=== PATIENT | male | born 1970 | race Caucasian/White ===

== ENCOUNTER → 2020-07-22 | Outpatient (CLI) | payer MEDICARE, OTHER ==
[~2020-07-22] MED LIST: MEDICATION
--- NOTE | 2020-07-22 12:01 | RAD ---
EXAM: Abdomen, 2 views. HISTORY: Pain. COMPARISON: CT dated 02/20/2016. FINDINGS: Frontal upright and supine views of the abdomen are obtained. There is a nonobstructive bowel gas pattern. There is no free air. There is linear radiodensity overlying the right upper quadrant measuring 2.5 mm. This is seen on both images and corresponds with extraluminal linear density adjacent to the proximal duodenum on the prior CT. IMPRESSION: No acute pulmonary finding. Electronically signed by: Chrissie Olmos MD (07/22/2020 11:57 AM) [id number]
== END ==
LOC: PMG 11:24
PROVIDERS: ATTEND Physician Assistant
DX: R10.31 Right lower quadrant pain (principal)
CPT/HCPCS: 74019

== ENCOUNTER → 2020-07-31 | Outpatient (CLI) | payer MEDICARE, OTHER ==
[~2020-07-31] MED LIST changes: +IOHEXOL 240 MG/ML 50ML VIAL. ONE; +IOHEXOL 240 MG/ML 50ML VIAL. PO ONE; +IOHEXOL 300 MG/ML 75 ML VIAL. IV ONE
--- NOTE | 2020-07-31 14:34 | RAD ---
EXAM: CT Abdomen and Pelvis with IV contrast INDICATION: Reason: RLQ ABD PAIN / Spl. Instructions: drinking at 0850 / History: TECHNIQUE: Multi-detector row CT images were acquired from the lung bases through the abdomen and pelvis with the use of IV contrast. Sagittal and coronal images were acquired from the transaxial data. All CT scans performed at this facility utilize dose optimization techniques as appropriate to the exam, including the following: Automated exposure control and adjustment of the mA and/or KV according to patient size (this includes techniques or standardized protocols for targeted exams where dose is indication/reason for exam). IV CONTRAST: Administered ORAL CONTRAST: Administered COMPARISON: 02/20/[address] with oral and IV contrast FINDINGS: LOWER CHEST: Unremarkable LIVER: Moderate diffuse hepatic steatosis BILIARY SYSTEM: Gallbladder is unremarkable. Bile ducts are not dilated. PANCREAS: Unremarkable SPLEEN: Unremarkable ADRENALS: Unremarkable KIDNEYS & URETERS: Unremarkable BLADDER: Unremarkable REPRODUCTIVE ORGANS: Unremarkable GASTROINTESTINAL: The stomach, small bowel, and colon are unremarkable. The appendix is normal. MESENTERY/PERITONEUM/RETROPERITONEUM: Unremarkable VASCULAR: Unremarkable LYMPH NODES: No adenopathy OSSEOUS & SOFT TISSUES: Unremarkable IMPRESSION: Fatty liver. Otherwise unremarkable abdomen pelvis CT. No specific cause for right lower quadrant abdominal pain is identified. The appendix in particular is normal. Electronically signed by: Joni Sin MD (07/31/2020 2:32 PM) [id number]
== END ==
LOC: CT 08:36
PROVIDERS: ATTEND Physician Assistant
DX: K76.0 Fatty (change of) liver, not elsewhere classified (principal)
CPT/HCPCS: 74177; Q9966; Q9967

== ENCOUNTER → 2022-01-08 | Day surgery (SDC) | payer MEDICARE ==
[~2022-01-08] MED LIST changes: +ALPR1TAB6 PO; +ATOR40TA59 PO; +CETI10TA16 PO; +CYCL10TA19 PO; +ESCITALOPRAM OX20 MG PO; -IOHEXOL 240 MG/ML 50ML VIAL. ONE; -IOHEXOL 240 MG/ML 50ML VIAL. PO ONE; -IOHEXOL 300 MG/ML 75 ML VIAL. IV ONE; +IPRATRPIUM/ALBUTEROL 0.5/2.5MG 3 ML NEBU. NEB PRN; +IV RINGERS SOLUTION,LACTATED 1,000 ML IV SCH; +KETAMINE HCL IN NACL, ISO-OSM 50 MG/5 ML SYRINGE ONE; +LEVO50TA5 PO; +LIDOCAINE 2% PF 5 ML VIAL. ONE; +LISI10TA16 PO; +METF500T16 PO; +MIDAZOLAM HCL PF 2 MG/2 ML VIAL. IV ONE; +OMEP40CA7 PO; +ONDANSETRON PF 4 MG/2 ML VIAL. IV PRN; +PROPOFOL 10,000 MCG/ML (20ML) VIAL IV ONE; +gabapentin
[2022-01-08 11:20] VITALS: BP 115/75
--- NOTE | 2022-01-12 09:09 | PATHOLOGY ---
[facility] Accession Number: [id number] . 01 Material submitted: . PART A: colon - DESCENDING COLON POLYP- HOT SNARE PART B: colon - TRANSVERSE COLON POLYP- HOT SNARE PART C: colon - ASCENDING COLON POLYP- HOT SNARE . 02 Diagnosis: A. Colon biopsy, descending colon polyp: - Tubular adenoma. . B. Colon biopsies, transverse colon polyp: - Tubular adenoma. . C. Colon biopsy, ascending colon polyp: - Tubular adenoma. (JPM:bren 01/11/2022) [facility] 01/11/2022 1510 Local . 02 Comment: There is no high grade dysplasia or evidence of malignancy. (JPM:bren; 01/11/2022) . 02 Electronically signed: . J Luis Rivas MD, Pathologist NPI- [id number] . 01 Gross description: . A. The specimen is received in formalin, labeled "Jesús Beverly, descending colon polyp hot snare". Received is a single, fallon-pink, soft tissue fragment, measuring 0.6 cm, in greatest dimension. The resection margin is inked green and the specimen is bisected and entirely submitted cassette A1. . B. The specimen is received in formalin, labeled "Jesús Beverly, transverse colon polyp hot snare". Received are 3, fallon-pink, soft tissue fragments, ranging in size from 0.3-0.5 cm, in greatest dimension. The specimen is entirely submitted cassette B1. . C. The specimen is received in formalin, labeled "Jesús Beverly, ascending colon polyp hot snare". Received is a single, fallon-pink, soft tissue fragment, measuring 0.4 cm, in greatest dimension. The specimen is entirely submitted cassette C1. (NUVIA; 01/08/2022) JGG/JGG 01/11/2022 1602 Local . 02 Pathologist provided ICD-10: D12.4, D12.3, D12.2 . 02 CPT . 455176, 264162, [id number] Specimen Comment: A courtesy copy of this report has been sent to [phone], [phone] Specimen Comment: [id number] Specimen Comment: Report sent to / DR ZAMORA Specimen Comment: A duplicate report has been generated due to demographic updates. Performed at: 01 [facility] [address] [id number] MD Adam Turcios MD Phone: [phone] Performed at: 02 [facility] [address] [place], [place] [id number] MD J Luis Rivas MD Phone: [phone]
== END | disposition home or self-care (01) ==
LOC: SURG 09:09
PROVIDERS: ATTEND Internal Medicine Gastroenterology
DX: Z12.11 Encounter for screening for malignant neoplasm of colon (principal); K64.8 Other hemorrhoids; D12.3 Benign neoplasm of transverse colon; D12.2 Benign neoplasm of ascending colon; D12.4 Benign neoplasm of descending colon; K21.9 Gastro-esophageal reflux disease without esophagitis; E11.9 Type 2 diabetes mellitus without complications; I10 Essential (primary) hypertension; E78.00 Pure hypercholesterolemia, unspecified; M19.90 Unspecified osteoarthritis, unspecified site; F32.9 Major depressive disorder, single episode, unspecified; F17.210 Nicotine dependence, cigarettes, uncomplicated; Z20.822 Contact with and (suspected) exposure to COVID-19; Z72.89 Other problems related to lifestyle; Z79.899 Other long term (current) drug therapy; Z98.890 Other specified postprocedural states; Z79.84 Long term (current) use of oral hypoglycemic drugs
CPT/HCPCS: 45381; 45385; 82947; 88305; C9803; J2001; J2704; J7120; U0003

== ENCOUNTER 2022-01-31 06:50 | Emergency (ER) | payer MEDICARE ==
[~2022-01-31] VITALS: Ht 157.5 cm; Wt 90.0 kg
[~2022-01-31 06:50] MED LIST changes: -IPRATRPIUM/ALBUTEROL 0.5/2.5MG 3 ML NEBU. NEB PRN; -IV RINGERS SOLUTION,LACTATED 1,000 ML IV SCH; -KETAMINE HCL IN NACL, ISO-OSM 50 MG/5 ML SYRINGE ONE; -LIDOCAINE 2% PF 5 ML VIAL. ONE; -MIDAZOLAM HCL PF 2 MG/2 ML VIAL. IV ONE; -ONDANSETRON PF 4 MG/2 ML VIAL. IV PRN; -PROPOFOL 10,000 MCG/ML (20ML) VIAL IV ONE
[2022-01-31 06:55] VITALS: BP 157/86
--- NOTE | 2022-01-31 07:14 | PHYS DOC ---
Past History Past Medical History: Anxiety, Depression, GERD, High Cholesterol, Hypertension Past Surgical History: No Surgical History Drug Use: None Adult General Chief Complaint Chief Complaint: ABDOMINAL PAIN HPI HPI Patient is a 51 year old male who presents with complaint of lower abdominal pain. Patient was brought to the emergency department by EMS after he was pulled over by local authorities on suspicion of DUI. The patient states that he started having abdominal pain yesterday morning. Awoke yesterday at 0300 stating that he had worsening lower abdominal pain. States that this initially improved throughout the day. He states however that last night some friends came to his house and he subsequently admits to heavy alcohol use last night. Started having worsening pain in his lower abdomen to the point that he felt he needed to come to the hospital this morning for further evaluation. He states that he tried driving himself to the hospital and was subsequently pulled over by authorities. He was then brought to the emergency department by ambulance. Currently denies vomiting, diarrhea, or fever. Review of Systems Review of Systems Constitutional: Denies fever or chills [] Eyes: Denies change in visual acuity, redness, or eye pain [] HENT: Denies nasal congestion or sore throat [] Respiratory: Denies cough or shortness of breath [] Cardiovascular: Denies chest pain or edema [] GI: Abdominal pain, nausea, denies vomiting or diarrhea [] : Denies dysuria or hematuria [] Musculoskeletal: Denies back pain or joint pain [] Integument: Denies rash or skin lesions [] Neurologic: Denies headache, focal weakness or sensory changes [] All other systems were reviewed and found to be within normal limits, except as documented in this note. Allergies Allergies Allergies Coded Allergies Type Severity Reaction Last Updated Verified No Known Drug Allergies 01/08/22 No Physical Exam Physical Exam Constitutional: Alert, afebrile, appears intoxicated. [] HENT: Normocephalic, atraumatic, bilateral external ears normal, oropharynx moist, no oral exudates, nose normal. [] Eyes: PERRLA, EOMI, conjunctiva normal, no discharge. [] Neck: Normal range of motion, no tenderness, supple, no stridor. [] Cardiovascular:Heart rate regular rhythm, no murmur [] Lungs & Thorax: Bilateral breath sounds clear to auscultation [] Abdomen: Bowel sounds normal, soft, suprapubic tenderness to palpation with guarding, no masses, no pulsatile masses. [] Skin: Warm, dry, no erythema, no rash. [] Back: No tenderness, no CVA tenderness. [] Extremities: No tenderness, no cyanosis, no clubbing, ROM intact, no edema. [] Neurologic: Alert and oriented X 3, normal motor function, normal sensory fun ction, no focal deficits noted. [] Current Patient Data Vital Signs Vital Signs Date Time Temp Pulse Resp B/P (MAP) Pulse Ox O2 Delivery O2 Flow Rate FiO2 01/31/22 06:55 98.7 91 16 157/86 (109) 97 Room Air Lab Results Laboratory Tests Test 01/31/22 07:08 01/31/22 07:35 White Blood Count 7.4 x10^3/uL Red Blood Count 4.47 x10^6/uL Hemoglobin 15.3 g/dL Hematocrit 43.9 % Mean Corpuscular Volume 98 fL Mean Corpuscular Hemoglobin 34 pg Mean Corpuscular Hemoglobin Concent 35 g/dL Red Cell Distribution Width 12.9 % Platelet Count 185 x10^3/uL Neutrophils (%) (Auto) 36 % Lymphocytes (%) (Auto) 49 % Monocytes (%) (Auto) 8 % Eosinophils (%) (Auto) 5 % Basophils (%) (Auto) 1 % Neutrophils # (Auto) 2.7 x10^3uL Lymphocytes # (Auto) 3.7 x10^3/uL Monocytes # (Auto) 0.6 x10^3/uL Eosinophils # (Auto) 0.4 x10^3/uL Basophils # (Auto) 0.1 x10^3/uL Sodium Level 136 mmol/L Potassium Level 4.1 mmol/L Chloride Level 100 mmol/L Carbon Dioxide Level 25 mmol/L Anion Gap 11 Blood Urea Nitrogen 8 mg/dL Creatinine 0.9 mg/dL Estimated GFR (Cockcroft-Gault) 89.3 BUN/Creatinine Ratio 9 Glucose Level 125 mg/dL Calcium Level 9.1 mg/dL Total Bilirubin 0.4 mg/dL Aspartate Amino Transf (AST/SGOT) 100 U/L Alanine Aminotransferase (ALT/SGPT) 151 U/L Alkaline Phosphatase 80 U/L Total Protein 7.7 g/dL Albumin 3.9 g/dL Albumin/Globulin Ratio 1.0 Lipase 159 U/L Ethyl Alcohol Level 189 mg/dL Urine Collection Type Clean catch Urine Color Straw Urine Clarity Clear Urine pH 6.0 Urine Specific Enterprise <=1.005 Urine Protein Neg Urine Glucose (UA) Neg mg/dL Urine Ketones (Stick) Neg mg/dL Urine Blood Neg Urine Nitrite Neg Urine Bilirubin Neg Urine Urobilinogen Dipstick 0.2 mg/dL Urine Leukocyte Esterase Neg Urine RBC 0 /HPF Urine WBC 0 /HPF Urine Squamous Epithelial Cells None /LPF Urine Bacteria 0 /HPF Urine Opiates Screen Neg Urine Methadone Screen Neg Urine Barbiturates Neg Urine Phencyclidine Screen Neg Urine Amphetamine/Methamphetamine Neg Urine Benzodiazepines Screen Pos Urine Cocaine Screen Neg Urine Cannabinoids Screen Pos Urine Ethyl Alcohol Pos Current Medications Medications (Trade) Dose Ordered Sig/Kailyn Route PRN Reason Start Time Stop Time Status Last Admin Dose Admin Multi-Ingredient Mouthwash/Gargle (Gi Cocktail) 20 ml 1X ONCE PO 01/31/22 07:15 01/31/22 07:16 DC 01/31/22 07:35 Sodium Chloride 1,000 ml @ 1,000 mls/hr Q1H IV 01/31/22 07:15 01/31/22 08:14 01/31/22 07:35 Ondansetron HCl (Zofran) 4 mg 1X ONCE IVP 01/31/22 07:15 01/31/22 07:16 DC 01/31/22 07:35 EKG EKG Not performed.[] Radiology/Procedures Radiology/[place] [address] IMAGING REPORT Signed PATIENT: REBEKA VALE ACCOUNT: [id number] : 1970 LOCATION: ER AGE: 51 SEX: M EXAM STATUS: REG ER ORD. PHYSICIAN: LYRIC GARCIA MD REASON: lower abdominal pain, nausea for 1 day PROCEDURE: CT ABDOMEN PELVIS WO CONTRAST EXAM: Abdomen and pelvis CT without intravenous contrast. HISTORY: Pain. TECHNIQUE: Computed tomographic images of the abdomen and pelvis were obtained without contrast. Multiplanar reformatting was performed. *One or more of the following individualized dose reduction techniques were utilized for this examination: 1. Automated exposure control. 2. Adjustment of the mA and/or kV according to patient size. 3. Use of iterative reconstruction technique. COMPARISON: 07/31/2020. FINDINGS: Evaluation of the lower thorax demonstrates no infiltrate or pleural effusion. There is hepatic steatosis. There is hepatomegaly. The gallbladder, pancreas, spleen and adrenal glands are unremarkable. There is no nephroureterolithiasis or suspicious renal lesion. There is no appendicitis. The re is no bowel obstruction. The bladder is unremarkable. The aorta is normal in caliber. There is no lymphadenopathy. There is a small partially calcified nodule within the midline ventral peritoneum at the level of the umbilicus, likely due to a focus of fat infarction. There is no surrounding inflammation. There is no acute or suspicious osseous finding. There are degenerative changes involving the lower lumbar spine. IMPRESSION: 1. No acute abdominal or pelvic finding. 2. Hepatic steatosis. Electronically signed by: Chrissie Lindsey MD (01/31/2022 8:00 AM) [id number] DICTATED AND SIGNED BY: CHRISSIE LINDSEY MD DATE: 01/31/22 0757 CC: LYRIC GARCIA MD; AVIVA ZAMORA ~ [] Heart Score C/O Chest Pain: No Risk Factors: Risk Factors: DM, Current or recent (<one month) smoker, HTN, HLP, family history of CAD, obesity. Risk Scores: Risk Factors: DM, Current or recent (<one month) smoker, HTN, HLP, family history of CAD, obesity. Course & Med Decision Making Course & Med Decision Making Pertinent Labs and Imaging studies reviewed. (See chart for details) The patient was given IV fluids, Zofran, and GI cocktail in the emergency department. Blood work reviewed and showed mild elevation in liver enzymes that is likely consistent with both recent alcohol use and history of hepatic steatosis. CT imaging shows no acute abnormality. Vital signs are stable and patient currently in no acute distress. Patient noted to have elevated blood alcohol level consistent with acute intoxication. Patient currently not under warrant as an involuntary hold in the emergency department. The patient was able to contact a family member who is able to provide safe transportation for patient to travel home. The patient was released under care of family. Recomme nded follow-up with primary doctor in the next 3 to 5 days for reevaluation and return to the emergency department for any worsening symptoms. Patient voiced understanding and in agreement with treatment plan. [] Dragon Disclaimer Dragon Disclaimer This electronic medical record was generated, in whole or in part, using a voice recognition dictation system. Departure Departure: Impression: Primary Impression: Abdominal pain Additional Impression: Alcohol intoxication Disposition: HOME / SELF CARE / HOMELESS Condition: STABLE Referrals: AVIVA ZAMORA (PCP) Patient Instructions: Abdominal Pain (Nonspecific), Alcohol Intoxication Additional Instructions: Follow-up with your primary care provider in the next 3 to 5 days for reevaluation. Return to the emergency department for any worsening symptoms. Problem Qualifiers Primary Impression: Abdominal pain Abdominal location: lower abdomen, unspecified Qualified Codes: R10.30 - Lower abdominal pain, unspecified Additional Impression: Alcohol intoxication Complication of substance-induced condition: uncomplicated Qualified Codes: F10.920 - Alcohol use, unspecified with intoxication, uncomplicated LYRIC GARCIA MD January 31, 2022 07:14
[2022-01-31] MEDS ORDERED: IV NORMAL SALINE 1,000ML 1,000 ML IV SCH (07:15)
[2022-01-31] MEDS ORDERED: ONDANSETRON PF 4 MG/2 ML VIAL. IVP ONE (07:15)
[2022-01-31] MEDS ORDERED: LIDO:MAALOX 1:1 20 ML SINGLE DOSE. PO ONE (07:15)
[2022-01-31 07:43] LABS: BASO # 0.1 x10^3/uL (0.0-0.2); BASO % 1 % (0-3); EOS # 0.4 x10^3/uL (0.0-0.7); EOS % 5 % (0-3); HEMATOCRIT 43.9 % (39.0-53.0); HEMOGLOBIN 15.3 g/dL (13.0-17.5); LYMPH # 3.7 x10^3/uL (1.0-4.8); LYMPH % 49 % (24-48); MEAN CORPUSCULAR HEMOGLOBIN 34 pg (25-35); MEAN CORPUSCULAR HGB CONC 35 g/dL (31-37); MEAN CORPUSCULAR VOLUME 98 fL (79-100); MONO # 0.6 x10^3/uL (0.0-1.1); MONO % 8 % (0-9); NEUT # 2.7 x10^3uL (1.8-7.7); NEUT % 36 % (31-73); PLATELET COUNT 185 x10^3/uL (140-400); RED BLOOD COUNT 4.47 x10^6/uL (4.30-5.70); RED CELL DISTRIBUTION WIDTH 12.9 % (11.5-14.5); WHITE BLOOD COUNT 7.4 x10^3/uL (4.0-11.0)
[2022-01-31 07:51] LABS: BACTERIA,URINE 0 /HPF (0-FEW); CLARITY,URINE CLEAR; COLOR,URINE STRAW; GLUCOSE,URINE NEG (NEG); NITRITE,URINE NEG (NEG); RBC,URINE 0 /HPF (0-2); UROBILINOGEN,URINE 0.2 mg/dL (0.2 mg/dL); WBC,URINE 0 /HPF (0-4)
[2022-01-31 07:53] LABS: BARBITURATES NEG (NEG); BENZODIAZEPINES POS (NEG); CANNABINOIDS POS (NEG); COCAINE NEG (NEG); METHADONE NEG (NEG); OPIATES NEG (NEG); PHENCYCLIDINE NEG (NEG)
[2022-01-31 07:54] LABS: CALCIUM 9.1 mg/dL (8.5-10.1); CREATININE 0.9 mg/dL (0.7-1.3); GFR 89.3; POTASSIUM 4.1 mmol/L (3.5-5.1)
[2022-01-31 08:00] LABS: ALBUMIN 3.9 g/dL (3.4-5.0); TOTAL BILIRUBIN 0.4 mg/dL (0.2-1.0); TOTAL PROTEIN 7.7 g/dL (6.4-8.2)
--- NOTE | 2022-01-31 08:02 | RAD ---
EXAM: Abdomen and pelvis CT without intravenous contrast. HISTORY: Pain. TECHNIQUE: Computed tomographic images of the abdomen and pelvis were obtained without contrast. Mult iplanar reformatting was performed. *One or more of the following individualized dose reduction techniques were utilized for this examina tion: 1. Automated exposure control. 2. Adjustment of the mA and/or kV according to patient size. 3. Use of iterative reconstruction technique. COMPARISON: 07/31/2020. FINDINGS: Evaluation of the lower thorax demonstrates no infiltrate or pleural effusion. There is hep atic steatosis. There is hepatomegaly. The gallbladder, pancreas, spleen and adrenal glands are unrem arkable. There is no nephroureterolithiasis or suspicious renal lesion. There is no appendicitis. The re is no bowel obstruction. The bladder is unremarkable. The aorta is normal in caliber. There is no lymphadenopathy. There is a small partially calcified nodule within the midline ventral peritoneum at the level of the umbilicus, likely due to a focus of fat infarction. There is no surrounding inflamm ation. There is no acute or suspicious osseous finding. There are degenerative changes involving the lower lumbar spine. IMPRESSION: 1. No acute abdominal or pelvic finding. 2. Hepatic steatosis. Electronically signed by: Chrissie Olmos MD (01/31/2022 8:00 AM) [id number]
[2022-01-31 08:03] LABS: AMPHETAMINE/METHAMPHETAMINE NEG (NEG)
== END 2022-01-31 08:15 | disposition home or self-care (01) ==
LOC: ER 06:50
DX: F10.129 Alcohol abuse with intoxication, unspecified (principal); R10.30 Lower abdominal pain, unspecified; K21.9 Gastro-esophageal reflux disease without esophagitis; E78.00 Pure hypercholesterolemia, unspecified; I10 Essential (primary) hypertension; Y90.6 Blood alcohol level of 120-199 mg/100 ml
CPT/HCPCS: 36415; 74176; 80053; 80307; 81001; 83690; 85025; 96361; 96374; 99284; G0480; J2405; J7030